=== PATIENT | female | born 1990 | race American Indian/Alaskan Native ===

== ENCOUNTER 2018-02-09 09:21 | Emergency (ER) | payer MEDICAID ==
[2018-02-09 09:44] VITALS: BP 110/64
--- NOTE | 2018-02-09 11:57 | Emergency Department Report ---
HPI - General Chief Complaint: Abdominal Pain Time Seen by Provider: 02/09/18 11:43 - HPI HPI: Patient here reports that she has right flank pain. Denies any abdominal pain. She says it started 3 days ago and thinks that she has a urinary tract infection since she had similar episode in the past. She is also reporting burning with urination. Denies any nausea or vomiting. Denies any fever or chills. Last measurement menstrual period was 01/27/2018. Denies any back pain. [id number] medication taken for pain. Patient denies any vaginal bleeding or discharge. Nothing makes pain worse nothing makes it better. ED Past Medical Hx - Past Medical History Previous Medical History?: Yes Hx Hypertension: No Hx Congestive Heart Failure: No Hx Diabetes: No Hx Deep Vein Thrombosis: No Hx Renal Disease: No Hx Sickle Cell Disease: Yes (Trait) Hx Seizures: No Hx Asthma: No Hx COPD: No Hx HIV: No - Surgical History Past Surgical History?: No - Family History Family history: no significant - Social History Smoking Status: Never Smoker Substance Use Type: Marijuana - Medications Home Medications: Home Medications Medication Instructions Recorded Confirmed Last Taken Type Ibuprofen [Motrin] 800 mg PO TID PRN #14 tablet 12/01/13 11/21/14 Unknown Rx Sulfamethoxazole/Trimethoprim 1 each PO BID #14 tablet 12/01/13 11/21/14 Unknown Rx [Bactrim DS] Pnv95/Ferrous Fumarate/FA 1 each PO QDAY #60 tablet 04/29/14 11/21/14 Unknown Rx [ Vitamins] HYDROcodone/APAP 5-325 [Vulcan 1 each PO Q6HR PRN #30 tablet 11/22/14 Unknown Rx 5-325 mg TAB] Amoxicillin [Trimox CAP] 500 mg PO Q8H #30 capsule 02/15/16 Unknown Rx Ibuprofen [Motrin 800 MG tab] 800 mg PO TID PRN #60 tablet 02/15/16 Unknown Rx Nitrofurantoin Monohyd/M-Cryst 100 mg PO Q12H 7 Days #14 capsule 02/09/18 Unknown Rx [Macrobid 100 mg Capsule] ED Review of Systems ROS: Stated complaint: ABDOMINAL/FLANK PAIN Other details as noted in HPI Comment: All other systems reviewed and negative Constitutional: no symptoms reported Respiratory: no symptoms reported Cardiovascular: denies: chest pain, palpitations, dyspnea on exertion, edema, syncope, paroxysmal nocturnal dyspnea Gastrointestinal: denies: abdominal pain, nausea, vomiting, diarrhea, constipation, hematemesis, melena, hematochezia Genitourinary: dysuria. denies: urgency, frequency, hematuria, discharge, abnormal menses, dyspareunia Musculoskeletal: back pain (reports right flank pain). denies: joint swelling, arthralgia, myalgia Skin: denies: rash, pruritus Neurological: denies: headache Physical Exam - Physical Exam Vital Signs: Vital Signs 02/09/18 09:38 Temperature 98.3 F Pulse Rate 78 Respiratory 18 Rate Blood Pressure 110/64 O2 Sat by Pulse 100 Oximetry General: This is a 27-year-old female well-nourished well-developed in no acute distress. Physical Exam: Head: Normocephalic, atraumatic, no abrasion, no bruising and no contusion. Eyes: Biateral pupils equal and reactive to light, bilateral EOM intact.. Bilateral conjunctival and sclera without injection, normal accommodation. No nystagmus Mouth: Moist, no pharyngeal exudate or erythema. No peritonsillar abscesses. Uvula is midline and oral airways patent. Neck: Supple, No Cervical adenopathy, full range of motion and no C-spine tenderness. No swelling or tracheal deviation normal reflexes Cardiovascular: S1, S2. Regular rate and rhythm. No murmur. Capillary refill is less then 3 seconds. Lungs: Clear to auscultate bilaterally. No rhonchi, wheezes or rales. No chest wall tenderness. No chest contusion. No bruising to chest. Abdomen: Non-tender to palpate in all quadrants, no guarding or rebound tenderness, positive bowel sounds in all quadrants. No CVA tenderness. No hernia, bruit or mass. No rigidity or distention. Extremities: No clubbing, cyanosis or edema. +2 pulses. No neurovascular compromise Skin: Clean, dry and intact. No rash or lesions. Neurological: GCS at 15, Pt is alert and oriented 3 speech is clear . Bilateral hand transformer coil winder strong and equal. Normal gait. Negative Romberg and no pronator drift. Normal Reflexes. No motor or sensory deficit Back: No vertebral tenderness, no paraspinal tenderness. The bend over and touch his toes without any difficulties. Ambulates without any difficulties. Psych: Normal mood and behavior ED Course Vital Signs 02/09/18 09:38 Temperature 98.3 F Pulse Rate 78 Respiratory 18 Rate Blood Pressure 110/64 O2 Sat by Pulse 100 Oximetry - Reevaluation(s) Reevaluation #1: 02/09/18 13:54 Patient stable throughout ED course. ED Medical Decision Making - Lab Data Lab Results 02/09/18 Range/Units Unknown Urine Color Yellow (Yellow) Urine Turbidity Clear (Clear) Urine pH 5.0 (5.0-7.0) Ur Specific [place] 1.017 (1.003-1.030) Urine Protein <15 mg/dl (Negative) mg/dL Urine Glucose (UA) Neg (Negative) mg/dL Urine Ketones Tr (Negative) mg/dL Urine Blood Neg (Negative) Urine Nitrite Neg (Negative) Urine Bilirubin Neg (Negative) Urine Urobilinogen < 2.0 (<2.0) mg/dL Ur Leukocyte Esterase Mod (Negative) Urine WBC (Auto) 4.0 (0.0-6.0) /HPF Urine RBC (Auto) 3.0 (0.0-6.0) /HPF U Epithel Cells (Auto) 6.0 (0-13.0) /HPF Urine Mucus Few /HPF Urine HCG, Qual Negative (Negative) Urine culture pending sent and pending - Medical Decision Making ED course: Patient here complaining of right flank pain and urinary burning. Urinalysis reveal patient with moderate amount of leukocyte Estrace, trace ketone. Patient with negative CVA tenderness and she does complain of urinary urination. Urine test is negative. Based on symptoms of burning in urination on moderate amount of leukocytes and urine patient will be treated for urinary tract infection. I discussed the results with patient and treatment plan and she voiced understanding. Patient discharged home in stable condition to follow up with her primary care physician and 2-3 days and given prescription for Macrobid. Critical care attestation.: If time is entered above; I have spent that time in minutes in the direct care of this critically ill patient, excluding procedure time. ED Disposition Clinical Impression: Acute cystitis without hematuria, Flank pain Disposition: - TO HOME OR SELFCARE Is pt being admited?: No Does the pt Need Aspirin: No Condition: Stable Instructions: Flank Pain (ED), Urinary Tract Infection in Women (ED) Additional Instructions: Please increase U fluid intake to include water and cranberry juice to 3 L per day. Take Antibiotic as prescribed We'll put your primary care physician and if he do not have a primary care physician follow-up at [facility] in 2-3 days. Prescriptions: Nitrofurantoin Monohyd/M-Cryst [Macrobid 100 mg Capsule] 100 mg PO Q12H 7 Days # 14 capsule Referrals: PRIMARY CARE, [Primary Care Provider] - 2-3 Days [facility] [Outside] - 2-3 Days Forms: Work/School Release Form(ED)
[2018-02-09 12:42] LABS: Bilirubin,Urine NEG (Negative); Blood,Urine NEG (Negative); Color,Urine Yellow (Yellow); Mucus,Urine FEW /HPF; Protein,Urine <15 mg/dL mg/dL (Negative); Urobilinogen,Urine < 2.0 mg/dL (<2.0)
[2018-02-09 12:43] LABS: HCG Qualitative,Urine Negative (Negative)
== END 2018-02-09 14:04 | disposition home or self-care (01) ==
LOC: ED 09:21
DX: N30.00 Acute cystitis without hematuria (principal); F12.10 Cannabis abuse, uncomplicated
CPT/HCPCS: 81001; 81025; 87086; 99283

== ENCOUNTER → 2018-05-30 19:49 | Emergency (ER) | payer MEDICAID | END | disposition left against medical advice (07) | LOC: ED 19:49 | DX: Z48.00 Encounter for change or removal of nonsurgical wound dressing (principal); Z53.21 Procedure and treatment not carried out due to patient leaving prior to being seen by health care provider ==